=== PATIENT | female | born 1960 | race Caucasian/White ===

== ENCOUNTER → 2020-10-08 | Day surgery (SDC) | payer BC ==
[~2020-10-08] VITALS: Ht 149.9 cm; Wt 61.2 kg
[~2020-10-08] MED LIST: BUPIVACAINE 0.5% P/F INJ 10 ML VIAL ONE; HYDR-4072 PO; LIDOCAINE W/ EPINEPHRINE 1% 20ML VIAL ONE; MIDAZOLAM HCL 1MG/1ML-2 ML VIAL ONE; MORPHINE SULF(PF) 0.5MG/ML 10ML VIAL ONE; ONDANSETRON HCL 4 MG/2 ML VIAL ONE; PROPOFOL 10 MG/ML 20 ML IV ONE; VANCOMYCIN HCL 1000 MG VL ONE; ceFAZolin 1GM/50ML 100 ML IV ONE; fentaNYL CITRATE 100 MCG/2 ML VL ONE
[2020-10-08 13:45] VITALS: BP 123/74
== END | disposition home or self-care (01) ==
LOC: SUR 07:47
PROVIDERS: ATTEND Anesthesiology Pain Medicine
DX: Z45.49 Encounter for adjustment and management of other implanted nervous system device (principal); M51.36 Other intervertebral disc degeneration, lumbar region; M54.40 Lumbago with sciatica, unspecified side; M79.89 Other specified soft tissue disorders; F17.200 Nicotine dependence, unspecified, uncomplicated; Z98.890 Other specified postprocedural states; Z79.899 Other long term (current) drug therapy; Z20.822 Contact with and (suspected) exposure to COVID-19
CPT/HCPCS: 62362; 62370; 88300; C1772; J0690; J2250; J2270; J2405; J2704; J3010; J3370; J3490; U0003